=== PATIENT | female | born 2005 | race African-American/Black ===

== ENCOUNTER 2024-08-29 18:26 | Emergency (ER) | payer BC, SELFPAY ==
--- NOTE | ~2024-08-29 | US_ITS ---
EXAMINATION: US PELVIS CLINICAL INFORMATION: Vaginal bleeding for 2 weeks. Abdominal cramping. COMPARISON: None available. TECHNIQUE: Ultrasound of the pelvis is performed using both transabdominal and transvaginal transducers along with Doppler. Transvaginal imaging is performed due to inadequate visualization transabdominally. FINDINGS: Uterus: The uterus measures 7.1 cm x 3.3 cm x 4.1 cm and is present in an anteverted anteflexed orientation. The endometrial echo complex measures 0.5 mm in width, within normal limits for size. No abnormal endometrial cavity fluid collections identified. A single 0.6 cm x 0.4 cm x 0.6 cm hypoechoic focus in a subserosal configuration is noted along the posterior uterine body suspicious for a subserosal fibroid. Right ovary measures 2.1 cm x 2.5 cm x 2.1 cm. The left ovary measures 3.7 cm x 2.2 cm x 1.9 cm. The ovaries demonstrate normal appearance on grayscale interrogation. No color Doppler abnormalities of the ovaries identified. No free intraperitoneal fluid collections are identified. US/US pelvic and transvaginal IMPRESSION: *Single 6 mm subserosal uterine fibroid associated with the posterior uterine body; otherwise, normal appearance of the uterus. Normal appearance of the endometrium. No endometrial cavity fluid collections. *Normal appearance of the left and right ovaries. Electronically signed by: Bala Benavides MD 08/29/2024 11:41 PM [facility]
[2024-08-29 19:36] VITALS: BP 120/78; PULSE 88; RESP 16; TEMP 36.4; O2SAT 100; BMI 20.7
--- NOTE | 2024-08-29 19:39 | ED_ITS ---
HPI - Abdominal Pain General Chief Complaint: Abdominal Pain Stated Complaint: Severe Menstrual cramps Time Seen by Provider: 08/30/24 04:02 Source: patient Mode of arrival: ambulatory Limitations: no limitations History of Present Illness ED Provider: TERI HPI narrative: 18 yo female with no sig PMH did take Plan B on 08/11 and since then has had persisent bleeding no large clots and lower abdominal cramps. She notes some diarrhea on Tuesday but no travel, abx, sick contacts. She is pending STI panel from [facility] already. She is not on OCPs. She has never had anything like this before. No fevers, no discharge, no n/v. MD elicited complaint: abdominal pain Onset (ago): day(s) (2) Pain Consistency: intermittent Location: suprapubic Severity: moderate Quality: cramping Radiation: none Exacerbating factors: nothing Relieving factors: nothing Context: other Associated symptoms: diarrhea Related Data Allergies Allergy/AdvReac Type Severity Reaction Status Date / Time No Known Allergies Allergy Verified 08/29/24 19:38 Review of Systems Review of Systems Constitutional : No Fever, No Chills ENT/Mouth : No sore throat, No Rhinorrhea Eyes: No Eye Pain, No Redness Cardiovascular : No Chest Pain, No SOB Respiratory : No Cough, No Sputum, No Wheezing Gastrointestinal : positive Nausea, No Vomiting, pos Diarrhea, positive abdominal pain, Genitourinary : positive irregular bleeding, No Dysuria, No Urinary Frequency, positive pelvic pain Musculoskeletal : No Myalgias Skin : No rash Neuro : No Weakness, No Headache Psych : No Anxiety/Panic, No Depression All other systems reviewed and are negative [facility] Past Medical History Attestation statement: The following information was validated with the patient. Source: old records reviewed Medical History (Updated 08/30/24 @ 05:41 by Torrie Gray DO) No pertinent past medical history Social History Social History (Updated 08/30/24 @ 05:37 by Torrie Gray DO) Patient Tobacco Use Status: Never used Tobacco Physical Exam ED Vital Signs: Vital Signs - 24 hr 08/29/24 19:36 08/29/24 22:54 08/30/24 01:01 Temperature 97.6 F 97.7 F 98.4 F Pulse Rate 88 75 75 Respiratory Rate 16 16 16 Blood Pressure 120/78 116/77 125/81 Pulse Oximetry 100 100 99 Oxygen Delivery Method Room Air Room Air Room Air BMI result Body Mass Index 20.7 Appearance: Alert. Oriented X3. No acute distress. Eyes: Pupils equal, round and reactive to light. ENT: Pharynx normal. Neck: Normal inspection. Neck supple. CVS: Normal heart rate and rhythm. Pulses normal. Respiratory: No respiratory distress. Breath sounds normal. Abdomen: Soft and very mild suprapubic ttp no rebound or guarding Skin: Skin warm and dry. Normal skin color. Normal skin turgor. Extremities: No lower extremity edema. No calf ttp Neuro: Oriented X 3. No motor deficit. No sensory deficit. Course Course Course Narrative: This is a Rapid Medical Examination (RME) performed by Mariela Hebert PA-C in triage. Full HPI, ROS, assessment and treatment plan per primary provider in the Main ED. 18 yo female here for eval of lower abd pain x24 hours. reports her current period has lasted 2 weeks which is not typical for her. her menstruation typically lasts 7 days. denies fever, urinary symptoms, N/V. no chance of . Plan: labs, UA, ultrasound Medical Decision Making Medical Decision Making [facility] Narrative: 18 yo female with no PMh here with abdominal pain, cramping and one bout of diarrhea - she overall has a benign exam this started after Plan B - at this time labs, UPT/UA, US of pelvis and ovaries. She was already tested for STI. She is not toxic and well appearing. Will refer to OBGYN pending outcome H/H stable Differential Diagnosis Differential Diagnoses: The differential diagnosis associated with the presentation includes STI, withdrawal bleeding, ovarian cyst Admission/Observation VS US and labs reeassuring can follow up as outpatient Lab Data [facility] Lab Attestation statement: I reviewed the patient's lab results. 08/29/24 19:55 08/29/24 19:55 Labs: Lab Results 08/29/24 08/30/24 Range/Units 19:55 01:24 WBC 4.6 L (4.8-10.8) X10*3/uL RBC 4.24 (4.20-5.50) X10*6/uL Hgb 12.5 (12.0-16.0) g/dl Hct 36.7 L (37.0-47.0) % MCV 86.6 (80.0-98.0) fL MCH 29.5 (27.0-33.0) pg MCHC 34.1 (31.0-35.0) g/dl RDW 12.7 (11.0-16.0) % Plt Count 329 (160-400) X10*3/uL MPV 9.4 (9.4-12.3) fL Immature Gran % (Auto) 0.2 (0.0-0.4) % Neut % (Auto) 44.2 L (45-73) % Lymph % (Auto) 42.3 H (20-40) % [place] % (Auto) 11.2 H (2-11) % Eos % (Auto) 1.5 (0-4) % Baso % (Auto) 0.6 (0-2) % Lymph # (Auto) 2.0 (1.2-4.9) X10*3/uL [place] # (Auto) 0.5 (0.1-1.2) X10*3/uL Eos # (Auto) 0.1 (0.0-0.4) X10*3/uL Baso # (Auto) 0.0 (0.0-0.2) X10*3/uL Abs Immat Gran (auto) 0.01 (0.00-0.03) X10*3/uL Absolute Neuts (auto) 2.0 (2.0-8.3) x10*3/uL Absolute Nucleated RBC 0.000 (0.0-0.012) X10*3/uL Nucleated RBC % (auto) 0.0 (0.0-0.2) /100WBC Sodium 139 (135-145) mmol/L Potassium 3.6 (3.3-5.1) mmol/L Chloride 109 H (96-108) mmol/L Carbon Dioxide 22 (22-29) mmol/L Anion Gap 12 (12-20) BUN 9 (9-16) mg/dL Creatinine 0.74 (0.5-1.4) mg/dL Estim Creat Clear Calc 118.1 Estimated GFR > 60 Random Glucose 122 H (60-115) mg/dL Calcium 9.5 (8.4-10.2) mg/dL Magnesium 2.0 (1.6-2.6) mg/dL Total Bilirubin 0.4 (0.0-1.0) mg/dL AST 22 (5-31) U/L ALT 12 (0-31) U/L Alkaline Phosphatase 67 (39-117) U/L Total Protein 7.8 (6.5-8.0) g/dL Albumin 4.4 (3.5-5.0) g/dL Lipase 29 (8-78) U/L Beta HCG, Quant < 2 mIU/mL Urine Color Straw Urine Appearance Cloudy Urine pH 5.5 (5.0-9.0) Ur Specific [place] 1.020 (1.005-1.025) Urine Protein 30 (1+) H (Neg-Trace) mg/dL Urine Glucose (UA) Negative (Negative) mg/dL Urine Ketones Negative (Negative) mg/dL Urine Blood Large (3+) H (Negative) Urine Nitrite Negative (Negative) Ur Leukocyte Esterase Small (1+) H (Negative) Urine RBC >20 H (0-2) /HPF Urine WBC 0-5 (0-5) /HPF Ur Squamous Epith Cells 0-2 (0-2) /HPF Urine Bacteria None Seen (None Seen) Hyaline Casts 0-2 (0-2) /LPF Urine Test NEGATIVE (NEGATIVE) Chlam trachomat DNA PCR NOT DETECTED (Not Detect.) N.gonorrhoeae DNA (PCR) NOT DETECTED (Not Detect.) Independent Interpretation I performed an independent interpretation of an: Ultrasound (+ fibroid) Radiology Impression Discussion of test interpretation with radiology: I have reviewed the radiologist's reading. Discharge Plan Discharge Clinical Impression: Pelvic pain Patient Disposition: Home, Self-Care Instructions: Pelvic Pain (ED) Additional Instructions: labs normal no anemia CT/NG negative urine normal please follow up with OBGYN US: US/US pelvic and transvaginal IMPRESSION: *Single 6 mm subserosal uterine fibroid associated with the posterior uterine body; otherwise, normal appearance of the uterus. Normal appearance of the endometrium. No endometrial cavity fluid collections. *Normal appearance of the left and right ovaries. Referrals: [facility] Women's Services [Provider Group] Stand Alone Forms: Work/School Release Print Language: Turkish
[2024-08-29 20:03] LABS: MANUAL DIFF FLAG NO
[2024-08-29 20:12] LABS: Basophils Percent Auto 0.6 % (0-2); Eosinophils Absolute Auto 0.1 X10*3/uL (0.0-0.4); Eosinophils Percent Auto 1.5 % (0-4); Hematocrit 36.7 % (37.0-47.0); Hemoglobin 12.5 g/dl (12.0-16.0); Imm Gran Abs Auto 0.01 X10*3/uL (0.00-0.03); Imm Gran Pct Auto 0.2 % (0.0-0.4); Lymphocytes Percent Auto 42.3 % (20-40); Mean Corpuscular HGB Conc 34.1 g/dl (31.0-35.0); Mean Corpuscular Hemoglobin 29.5 pg (27.0-33.0); Mean Corpuscular Volume 86.6 fL (80.0-98.0); Mean Platelet Volume 9.4 fL (9.4-12.3); Monocytes Absolute Auto 0.5 X10*3/uL (0.1-1.2); Monocytes Percent Auto 11.2 % (2-11); Neutrophils Percent Auto 44.2 % (45-73); Platelet Count 329 X10*3/uL (160-400); Red Blood Count 4.24 X10*6/uL (4.20-5.50); Red Cell Distribution Width 12.7 % (11.0-16.0); White Blood Count 4.6 X10*3/uL (4.8-10.8)
[2024-08-29 20:28] LABS: Alanine Aminotransferase 12 U/L (0-31); Albumin Level 4.4 g/dL (3.5-5.0); Alkaline Phosphatase 67 U/L (39-117); Anion Gap 12 (12-20); Aspartate Amino Transferase 22 U/L (5-31); Bilirubin Total 0.4 mg/dL (0.0-1.0); Blood Urea Nitrogen 9 mg/dL (9-16); Calcium 9.5 mg/dL (8.4-10.2); Carbon Dioxide 22 mmol/L (22-29); Chloride 109 mmol/L (96-108); Creatinine Clr Calc Pharmacy 118.1; Estimated Glomerular Filt Rate > 60; Glucose Random 122 mg/dL (60-115); Lipase 29 U/L (8-78); Potassium 3.6 mmol/L (3.3-5.1); Sodium 139 mmol/L (135-145); Total Protein 7.8 g/dL (6.5-8.0)
[2024-08-29 20:29] LABS: HCG Quantitative < 2 mIU/mL
[2024-08-29 22:54] VITALS: BP 116/77; PULSE 75; RESP 16; TEMP 36.5; O2SAT 100
[2024-08-30 01:01] VITALS: BP 125/81; PULSE 75; RESP 16; TEMP 36.9; O2SAT 99
[2024-08-30 01:34] LABS: UPreg QC Valid YES; Urine Pregnancy NEGATIVE (NEGATIVE)
[2024-08-30 01:35] LABS: Appearance Urine Cloudy; Color Urine Straw; Glucose Urine UA Negative (Negative); Leukocyte Esterase Urine Small (1+) (Negative); Nitrite Urine Negative (Negative); PH 5.5 (5.0-9.0); UMIC TRIGGER UACC YES; Urine Blood Large (3+) (Negative); Urine Ketones Negative (Negative); Urine Protein 30 (1+) mg/dL (Neg-Trace)
[2024-08-30 01:46] LABS: Bacteria Urine None Seen (None Seen); Hyaline Casts Urine 0-2 /LPF (0-2); RBC Urine >20 /HPF (0-2); Squamous Epithelial Cell Urine 0-2 /HPF (0-2); UACC Culture Trigger YES; WBC Urine 0-5 /HPF (0-5)
--- NOTE | 2024-08-30 03:05 | PC.NURSE ---
Pt resting on stretcher, eyes closed easily awoken. Continued lower abd discomfort. Labs resulted, continues to await primary provider eval. Aware of plan of care.
--- NOTE | 2024-08-30 05:11 | PC.NURSE ---
Provider to bedside for primary eval.
[2024-08-30 05:17] LABS: CT PCR NOT DETECTED (Not Detect.); NG PCR NOT DETECTED (Not Detect.)
[2024-08-30 05:55] VITALS: BP 118/79; PULSE 82; RESP 16; TEMP 36.5; O2SAT 98
== END 2024-08-30 05:56 | disposition home or self-care (01) ==
PROVIDERS: Physician Assistant Medical; Emergency Provider Emergency Medicine; PCP Nurse Practitioner Family
DX: R10.2 Pelvic and perineal pain (principal); R19.7 Diarrhea, unspecified; R25.2 Cramp and spasm; Z79.899 Other long term (current) drug therapy
CPT/HCPCS: 36415; 76830; 76856; 80053; 81001; 81025; 83690; 83735; 84702; 85025; 87086; 87491; 87591; 99284

== ENCOUNTER 2024-10-09 15:12 | Outpatient (AMB) | payer BC, SELFPAY ==
[2024-10-09 15:17] VITALS: BP 118/68; BMI 21.7
--- NOTE | 2024-10-09 15:17 | MHC.OFFVIS ---
Vital Signs 10/09/24 15:17 Height 5 ft 8 in Weight 143 lb BMI 21.7 BP 118/68 Intake Visit Reasons: ER follow up/abd pain Dental Assistant Medical Assistant Services: Dental Assistant Medical Assistant Present Information Interpreted: clinical only Pain Coordinator: Pain Coordinator Present Allergies No Known Allergies Allergy (Verified 10/09/24 15:18) Medication List - Last Reconciled 10/09/24 by Maria Elliott CNM folic acid 0.4 mg PO DAILY multivitamin (Daily Multi-Vitamin tablet) 1 tab PO DAILY Is last menstrual period known: Yes Last menstrual period: 09/26/24 HPI HPI ER follow up/abd pain: Details: Patient is referred to care aid follow-up after an ER visit for pelvic pain in early August.. She had had worse pelvic pain then ever and she had had a period that lasted 2 weeks and it was after taking plan B. She is not currently sexually active and does not have plans to be in the foreseeable future and has a intention of taking her time to get to know somebody very well before becoming sexually active again. She is in school at [employer] and is studying computer science. She gets regular menses and normally does not find very painful. She does have lots of questions about different methods of control like to talk about them all. She is from [place]. Uzbek is her 1st language. [facility] Medical History No pertinent past medical history Social History Patient Tobacco Use Status: Never used Tobacco Female Reproductive History Menstrual Age of Menarche: 11 Duration of menses: 6-7 days Date of last menstrual period: 09/26/24 control method: none Total pregnancies: 0 Full term: 0 Physical Exam Vital Signs: Last Vital Signs BP 118/68 10/09/24 15:17 BMI result Body Mass Index 21.7 Const Other: deferred Results Reviewed Results Reviewed: Patient: John Shaver MR#: [id number] : 2005 Acct:[id number] Age/Sex: 18 / F ADM Date: 08/29/24 Loc: HO.ED Attending Dr: Ordering Physician: Gale Hebert Date of Service: 08/29/24 Procedure(s): US pelvic and transvaginal Accession Number(s): [id number] cc: Tameka Lugo DNP, DIGITAL ADVERTISING SPECIALIST; Gale Hebert~ EXAMINATION: US PELVIS CLINICAL INFORMATION: Vaginal bleeding for 2 weeks. Abdominal cramping. COMPARISON: None available. TECHNIQUE: Ultrasound of the pelvis is performed using both transabdominal and transvaginal transducers along with Doppler. Transvaginal imaging is performed due to inadequate visualization transabdominally. FINDINGS: Uterus: The uterus measures 7.1 cm x 3.3 cm x 4.1 cm and is present in an anteverted anteflexed orientation. The endometrial echo complex measures 0.5 mm in width, within normal limits for size. No abnormal endometrial cavity fluid collections identified. A single 0.6 cm x 0.4 cm x 0.6 cm hypoechoic focus in a subserosal configuration is noted along the posterior uterine body suspicious for a subserosal fibroid. Right ovary measures 2.1 cm x 2.5 cm x 2.1 cm. The left ovary measures 3.7 cm x 2.2 cm x 1.9 cm. The ovaries demonstrate normal appearance on grayscale interrogation. No color Doppler abnormalities of the ovaries identified. No free intraperitoneal fluid collections are identified. US/US pelvic and transvaginal IMPRESSION: *Single 6 mm subserosal uterine fibroid associated with the posterior uterine body; otherwise, normal appearance of the uterus. Normal appearance of the endometrium. No endometrial cavity fluid collections. *Normal appearance of the left and right ovaries. Electronically signed by: Bala Benavides MD 08/29/2024 11:41 PM [facility] Dictated By: Bala Benavides MD Signed By: <Electronically signed by Bala Benavides MD in OV> 08/29/24 1601 DD/ 58 TD/TT: 08/29/242007 Weigher And Grader: EF Assessment & Plan Assessment & Plan (1) Fibroid, uterine: Comment: 6 Mm possible subserosal Code(s): D25.9 - Leiomyoma of uterus, unspecified Category: Medical (2) control counseling: Code(s): Z30.09 - Encounter for other general counseling and advice on contraception Category: Medical Plan Discussed fibroids and what indications demand attention such as increasing increasing sense in heaviness or pressure increasing menses increasing dysmenorrhea etc. review potential challenges and range of usual and newer treatments. reviewed that 1 this tiny would not usually warrant any specific treatment. Reviewed all methods of control. -I reviewed with the patient, all of the currently common used methods of control that are available. We reviewed how they work in the body, how they are taken, common side effects, uncommon side effects, precautions, and contraindications. -Discussed also factors that influence their effectiveness and use, and womens satisfaction with the method. -Discussed how each are used, and drawbacks of each method as well. -Methods covered included: condoms, control pills, control patches, control rings, Depo-Provera, Nexplanon, Mirena and Kyleena IUDs, and ParaGard IUDs. All of the above methods were covered in great detail including their side effect profiles and common experiences that women have and ways to mitigate against the negative experiences including attention to diet and exercise patient's with bleeding challenges that may occur her and efforts to time the initiation of the method to this start of the menstrual period. Reviewed also cervical cancer screening cervical cancer prevention with the HPV vaccine and recommend that she check out whether not she thinks she got the vaccine she got a lot of different vaccines but it is unclear what was offered in [facility]. Reviewed that we start cervical cancer screening exams and Pap smears at age 19 for her is coming up in the spring. 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 She has had a pelvic exams she has a in the emergency room. Discussed what we do during an exam screening tests due and it did show her speculum as well RTC for hand tennis ball coverer annual whenever she was ready to schedule that. She is not interested any control method right now and will consider options going forward. Coding Level of Care Code New Pt Level 3 (44857) Diagnoses Fibroid, uterine D25.9 control counseling Z30.09 Time Spent (min) 45 Comment 5 cr/35 speaking patient all of the above/5 charting
== END 2024-10-09 16:00 ==
PROVIDERS: PCP Nurse Practitioner Family; Visit Provider Advanced Practice Midwife
DX: D25.9 Leiomyoma of uterus, unspecified (principal); Z30.09 Encounter for other general counseling and advice on contraception
CPT/HCPCS: 99203

== ENCOUNTER → 2024-10-09 15:12 | Outpatient (BNVA) | payer BC, SELFPAY | PROVIDERS: PCP Nurse Practitioner Family; Visit Provider Advanced Practice Midwife ==